=== PATIENT | female | born 1960 | race Two or more races ===

== ENCOUNTER 2017-02-17 22:37 | Emergency (ER) | payer MEDICAID ==
--- NOTE | ~2017-02-17 | CR63 ---
[facility] A Service of [facility] & [facility] RADIOLOGY TEXT RESULTS PATIENT: WONG THOMAS LOCATION: [facility] : 60 UNIT #: [id number] AGE: [address]: Zhen Ramirez MD SEX: F ORDER DR: [id number] [facility] [address] [place], [place] [address] [id number] MR#: [id number] Acc #: [id number] NAME: WONG THOMAS : 1960 SEX: F STUDY DATE/TIME: 02/17/2017 22:49 UNIT: [facility] ROOM: STUDY DESCRIPTION: CR Chest 2 View Attending Physician: Zhen Ramirez M.D. Ordering Physician: Zhen Ramirez M.D. Primary Care Physician: No Primary Care Physician MEDICAL IMAGING REPORT This report is preliminary unless electronic signature is present EXAM 2 view chest 02/17/2017 INDICATIONS 56-year-old female with a cough, congestion, short of air symptoms 2 days TECHNIQUE 2 views of the chest were performed. Correlation is made with chest x-ray 12/12/2016 FINDINGS Cardiac silhouette is borderline in size. The vascularity is unremarkable. Bibasilar atelectasis or infiltrates left greater than right are present. No pneumothorax. No effusion. Lateral view degraded by motion. IMPRESSION Borderline cardiac size with bibasilar atelectasis or infiltrates left greater than right. No distinct evidence of effusion. Dictated by... Sunil Phillips M.D. THIS IS AN ELECTRONICALLY VERIFIED REPORT Sunil Phillips M.D. at 02/18/2017 9:58 PM COLLEEN/gillian TD: 02/18/2017 13:15 JOB #: [id number] MEDICAL IMAGING REPORT Page 1 of 1 COPY
--- NOTE | ~2017-02-17 | EKG ---
PATIENT: WONG THOMAS UNIT #: [id number] Ventricular Rate: 64 BPM Atrial Rate: 64 BPM P-R Interval: 206 ms QRS Duration: 72 ms Q-T Interval: 390 ms QTC Calculation(Bezet): 402 ms P [place]: 65 degrees Calculated R [place]: 6 degrees Calculated T [place]: 22 degrees Diagnosis Line: Normal sinus rhythm Diagnosis Line: Left atrial enlargement Diagnosis Line: Abnormal ECG Diagnosis Line: When compared with ECG of 12-DEC-2016 06:42, Diagnosis Line: No significant change was found Diagnosis Line: Confirmed by GIOVANI AUSTIN MD ([id number]) on 02/19/2017 Diagnosis Line: 10:57:17 PM INTERPRETING MD: GEOVANNA EASTMAN
[2017-02-17 18:50] LABS: POC - CKMB <1.0 ng/mL (0.0-7.9); POC - TROPONIN <0.05 ng/mL (<=0.05)
[2017-02-17 18:56] LABS: INFLUENZA A NEG (NEG); INFLUENZA B NEG (NEG)
[2017-02-17 19:06] LABS: BUN/CREATININE RATIO 18.57; CALCIUM SERUM 8.8 mg/dL (8.4-10.2); CREATININE SERUM 0.7 mg/dL (0.6-1.4); GLOM FILT RATE Estimated 96.9 mL/min (>60); POTASSIUM 4.5 mmol/L (3.5-5.1)
[2017-02-17 22:45] LABS: BASOPHIL% 0.5 % (0-2.5); EOSINOPHIL# 0.2 X10e3 (0-0.7); EOSINOPHIL% 3.8 % (0.0-7.0); HEMATOCRIT 40.2 % (35.0-45.0); HEMOGLOBIN 13.5 gm/dL (12.0-16.0); LYMPHOCYTE# 2.6 X10e3 (1.0-3.5); LYMPHOCYTE% 41.4 % (17.0-45.0); MEAN CELL VOLUME 92.8 FL (83-96); MEAN CORPUSCULAR HEMOGLOBIN 31.1 PG (28-34); MEAN CORPUSCULAR HGB CONC 33.6 g/dL (30-36); MEAN PLATELET VOLUME 9.7 FL (6.5-11.5); MONOCYTE# 0.4 X10e3 (0-1.0); MONOCYTE% 6.9 % (3.0-12.0); NEUTROPHIL# 2.9 X10e3 (1.5-7.1); NEUTROPHIL% 47.4 % (40-75); PLATELET COUNT 200 X10e3 (140-420); RED BLOOD COUNT 4.33 X10e (3.90-5.30); WHITE BLOOD COUNT 6.2 X10e3 (4.0-10.5)
[2017-02-17 22:46] LABS: DIFF IND YES
[2017-02-17 23:02] LABS: ANISOCYTOSIS SL; PLATELET ESTIMATE NORMAL (NORMAL)
== END 2017-02-17 23:41 | disposition home or self-care (01) ==
LOC: CED 22:37
PROVIDERS: Emergency Medicine
DX: R50.9 Fever, unspecified (principal); R06.00 Dyspnea, unspecified
CPT/HCPCS: 36415; 71020; 80048; 82553; 84484; 85025; 87804; 93005; 99283

== ENCOUNTER 2017-07-17 17:04 | Emergency (ER) | payer MEDICAID | END 2017-07-17 18:26 | disposition home or self-care (01) | LOC: CED 17:04 → CFTX 17:04 | DX: M79.1 Myalgia (principal); M25.50 Pain in unspecified joint; M19.90 Unspecified osteoarthritis, unspecified site; R03.0 Elevated blood-pressure reading, without diagnosis of hypertension | CPT/HCPCS: 96372; 99283; J1885 ==